=== PATIENT | female | born 1995 | race Caucasian/White ===

== ENCOUNTER 2017-06-29 09:02 | Emergency (ER) | payer BC, MEDICAID ==
--- NOTE | 2017-06-29 11:12 | UC ---
Respiratory Complaint HPI - HPI Summary HPI Summary: 22 y/o female PMHX of CP and a MOBILITY ENGINEER shunt presents to the urgent care accompany by parents c/o mild nasal congestion, dry cough and being exposed to the flu by her home health aid. Pt states she feels fine. However Mother states this morning Pt had puffy eyes and red w. mild upset stomach. Although that is common on Pt at times. The Home Health aid called on Monday saying she was Dx w / Influenza B. Mother reports Pt hasn't been sick in a long time. She has given Ibuprofen 200mg PO to alleviates symptoms. Pt doesn't get the influenza vaccines since last time she had it she had a Grand mal seizure. Parents denied fever, SOB, respiratory distress, chest pain, abdominal pain, N/V/D. Pt is UTD w / all vaccines for her age. Mother states her daughter usually gets anxious when she visit the doctor. - History of Current Complaint Chief Complaint: UCGeneralIllness Stated Complaint: COUGH Time Seen by Provider: 06/29/17 11:10 Hx Obtained From: Patient, Family/Aircraft Stress Analyst - mother ?: No Onset/Duration: Gradual Onset, Lasting Days - 3 days, Still Present, Worse Since - today Timing: Constant Severity Initially: Mild Severity Currently: Mild Pain Intensity: 0 Pain Scale Used: 0-10 Numeric Character: Cough: Nonproductive Aggravating Factors: Other - fever Alleviating Factors: OTC Meds Associated Signs And Symptoms: Positive: Fever, Chills, Nasal Congestion - Risk Factors Pulmonary Embolism Risk Factors: Negative - Allergies/Home Medications Allergies/Adverse Reactions: Allergies Allergy/AdvReac Type Severity Reaction Status Date / Time No Known Allergies Allergy Verified 06/29/17 11:00 Home Medications: Home Medications Baclofen TAB* [Lioresal TAB*] 10 mg PO QID 06/29/17 [History Confirmed 06/29/17] PMH/Surg Hx/FS Hx/Imm Hx Previously Healthy: Yes Other Neurological History: Cerebral Palsy w/ MOBILITY ENGINEER shunt - Surgical History Surgical History: Yes Surgery Procedure, Year, and Place: placement of MOBILITY ENGINEER shunt - Family History Known Family History: Positive: Hypertension - Social History Occupation: Disabled Lives: With Family Alcohol Use: None Substance Use Type: None Smoking Status (MU): Never Smoked Tobacco - Immunization History Vaccination Up to Date: Yes Review of Systems Constitutional: Fever Skin: Negative Eyes: Negative ENT: Negative, Nasal Discharge, Sinus Congestion Respiratory: Cough Cardiovascular: Negative Gastrointestinal: Negative Genitourinary: Negative Motor: Negative Neurovascular: Negative Musculoskeletal: Negative Neurological: Negative Psychological: Negative Is Patient Immunocompromised?: No All Other Systems Reviewed And Are Negative: Yes Physical Exam Triage Information Reviewed: Yes Vital Signs: Initial Vital Signs Temp 101.3 F 06/29/17 10:51 Pulse 158 06/29/17 10:51 Resp 20 06/29/17 10:51 BP 141/95 06/29/17 10:51 Pulse Ox 99 06/29/17 10:51 - Additional Comments VITAL SIGNS: Reviewed. GENERAL: Patient w/ PMHX of CP is a well developed and nourished thin female who is sitting comfortable in her wheel chair smiling and talking w/o any acute respiratory distress. HEAD AND FACE: No signs of trauma. No ecchymosis, hematomas or skull depressions. No sinus tenderness. edematous erythematous nasal mucosa with clear discharge, EYES: PERRLA, EOMI x 2, No injected conjunctiva, clear watery eyes, no nystagmus. No photophobia. EARS: Hearing grossly intact. Ear canals and tympanic membranes are within normal limits. MOUTH: Positive pharynx with mild erythema, no exudates,no palatal petechiae. no B/L tonsillar enlargement Uvula in midline. NECK: Supple, trachea is midline, Mild anterior cervical lymphadenopathy, no JVD, no carotid bruit, no c-spine tenderness, neck with full ROM. No meningeal signs, no Kernig's or brudzinskis signs. CHEST: Symmetric, no tenderness at palpation LUNGS: Clear to auscultation bilaterally. No wheezing or crackles. CVS: Regular rate and rhythm, S1 and S2 present, no murmurs or gallops appreciated. ABDOMEN: Soft, non-tender. No signs of distention. No rebound no guarding, and no masses palpated. Bowel sounds are normal. EXTREMITIES: FROM in all major joints, no edema, no cyanosis or clubbing. NEURO: Alert and oriented x 3. No acute neurological deficits. Delay Speech and follows commands. SKIN: Dry and warm UC Diagnostic Evaluation - Laboratory O2 Sat by Pulse Oximetry: 99 Respiratory Course/Dx - Course Course Of Treatment: 22 y/o female PMHX of CP and a MOBILITY ENGINEER shunt presents to the urgent care accompany by parents c/o mild nasal congestion, dry cough and being exposed to the flu by her home health aid. Pt states she feels fine. However Mother states this morning Pt had puffy eyes and red w/ mild upset stomach. Although that is common on Pt at times. The Home Health aid called on Monday saying she was Dx w/ Influenza B. Mother reports Pt hasn't been sick in a long time. She has given Ibuprofen 200mg PO to alleviates symptoms. Pt doesn't get the influenza vaccines since last time she had it she had a Grand mal seizure. Parents denied fever, SOB, respiratory distress, chest pain, abdominal pain, N/V /D. Pt is UTD w/ all vaccines for her age. Mother states her daughter usually gets anxious when she visit the doctor. Hx obtained.Pt with URI on examination, febrile and tachycardic w/o any apparent repiratory distress, O2Sat: 99%. Pt given Tylenol PO for fever and temp started to decrease 100.1F. Influenza A&B ordered: result: Influenza B positive. Symptoms discussed w/ DR Green, he recommended an EKG and a chest X-ray. EKG ordered: Sinus Tachycardia, HR:141bpm , No ST elevations or Depressions. Chest X-ray ordered: Impression: No acute cardiopulmonary disease as per radiologist. At this point all results discussed w/ parents and Pt is hemodynamically stable. Pt will be D/C home w/ close observation by parents and f/u w/ PCP in 2 days for recheck and see if Rony's symptoms are improving. Pt Rx Tamiflu and ibuprofen PO to alleviates symptoms. Parents also Advised on hand washing and wear a mask to avoid spreading, to rest , increase fluid intake, eat well . However If symptoms do not improve or worsen parents advised to go immediately to the ER for furthr management. Pt's BP is elevated today advised to decrease salt in diet, monitor BP and f/u with PCP for further management.Parents and PT understood and agreed with plan of care. Pt ;eft the clinic hemodynamically stable and smiling. - Differential Dx/Diagnosis Differential Diagnosis/HQI/PQRI: Asthma, Bronchitis, Influenza, Laryngitis, Lower Resp Infection, Sinusitis Provider Diagnoses: 1- Influenza B. 2-fever. 3-Elevated BP w/o Hx of HTN - Physician Notification/Consults Discussed Patient Care With: Vivek Green - DR Green agreed w/ Pt's plan of care. Discharge - Discharge Plan Condition: Stable Disposition: HOME Prescriptions: Ibuprofen TAB* [Motrin TAB* 600 MG] 600 mg PO Q6H PRN #20 tab PRN Reason: Fever Oseltamivir CAP* [Tamiflu CAP*] 75 mg PO BID #10 cap Patient Education Materials: Influenza (ED), Low-Sodium Diet (ED) Referrals: Jocelyne Candelario MD [Primary Care Provider] - Additional Instructions: 1- Please give Rony the full course of the antiviral to avoid resistance. Encourage hand washing and wear a mask to avoid spreading. 2-Please give her Ibuprofen PO q6-8hrs prn as instructed after meals to alleviate fever, and sore throat. Increase fluid intake, eat well, rest and avoid strenuous exercise 3-Please Close observation and if she developed SOB, respiratory distress and elevated fever despite mediations take her to the ER for futher evaluation and treatment. Otherwise f/u w/ her PCP or return to the urgent care in 2-3 days for recheck that her symptoms are improving. 4 -Her BP is elevated today. please decrease salt in diet, monitor BP and if it continues to be elevated please f/u with PCP for further management
[2017-06-29] MEDS ORDERED: Acetaminophen TAB* 325 MG PO ONE (11:31)
--- NOTE | 2017-06-29 12:43 | RAD ---
INDICATION: Productive cough, fever and tachycardia. COMPARISON: There are no prior studies available for comparison. TECHNIQUE: An AP view of the chest was obtained. FINDINGS: The heart is within normal limits in size. Mediastinal and hilar contours appear within normal limits. The lungs are underinflated and clear. No pleural effusion is seen. There is ventricular peritoneal shunt catheter which projects over the right hemithorax. IMPRESSION: NO EVIDENCE FOR ACTIVE CARDIOPULMONARY DISEASE.
[2017-06-29 13:04] VITALS: BP 148/79
== END 2017-06-29 13:07 | disposition home or self-care (01) ==
LOC: UCCORT 09:02
DX: J10.1 Influenza due to other identified influenza virus with other respiratory manifestations (principal); R50.9 Fever, unspecified; R03.0 Elevated blood-pressure reading, without diagnosis of hypertension; I48.91 Unspecified atrial fibrillation; G80.9 Cerebral palsy, unspecified
CPT/HCPCS: 71045; 87502; 93005; 99202; A9270-GY; G0463

== ENCOUNTER 2018-06-29 11:22 | Emergency (ER) | payer BC, MEDICAID ==
--- NOTE | 2018-06-29 12:25 | ED ---
Abdominal Pain/Female - HPI Summary HPI Summary: 23yr old female with the complaint of abdominal pain, fever. Onset three days ago. Progressively worse. She has a history of CP. She limited ability to communicate. She is wheel chair bound. No runny nose, cough, sob. No diarrhea. - History of Current Complaint Chief Complaint: UCAbdominalPain Stated Complaint: GALLARDO,NAUSEA,STOMACHE ACHE Time Seen by Provider: 06/29/18 12:10 Hx Last Menstrual Period: 05/31/18 Pain Intensity: 5 Allergies/Adverse Reactions: Allergies Allergy/AdvReac Type Severity Reaction Status Date / Time No Known Allergies Allergy Verified 06/29/18 11:57 Home Medications: Home Medications Oral Bcp 1 tab PO DAILY 06/29/18 [History] PMH/Surg Hx/FS Hx/Imm Hx - Surgical History Surgery Procedure, Year, and Place: placement of REVENUE INSPECTOR shunt Infectious Disease History: No Infectious Disease History: Denies: Traveled Outside the [place] in Last 30 Days - Family History Known Family History: Positive: Hypertension - Social History Lives: With Family Alcohol Use: None Substance Use Type: Reports: None Smoking Status (MU): Never Smoked Tobacco Review of Systems - ROS Summary Review of Systems Summary: ROS limited due to Cerbral Palsey. Positive: Fever, Chills Positive: Abdominal Pain All Other Systems Reviewed And Are Negative: Yes - Comments Additional Review of Systems Comments: Limited due to CP Physical Exam Triage Information Reviewed: Yes Vital Signs On Initial Exam: Initial Vitals Temp Pulse Resp Pulse Ox 100.1 F 150 26 99 06/29/18 11:54 06/29/18 11:54 06/29/18 11:54 06/29/18 11:54 Vital Signs Reviewed: Yes Appearance: Positive: Well-Appearing, No Pain Distress Skin: Positive: Warm, Skin Color Reflects Adequate Perfusion Head/Face: Positive: Normal Head/Face Inspection Eyes: Positive: EOMI Neck: Positive: Supple, Nontender Respiratory/Lung Sounds: Positive: Clear to Auscultation, Breath Sounds Present Cardiovascular: Positive: RRR. Negative: Murmur Abdomen Description: Positive: Nontender. Negative: Distended, Guarding Musculoskeletal: Positive: Strength/ROM Intact Neurological: Positive: Alert, Oriented to Person Place, Time, Other - wheelchair bound Psychiatric: Positive: Normal Diagnostics - Vital Signs Vital Signs Temp Pulse Resp Pulse Ox 06/29/18 11:54 100.1 F 150 26 99 - Laboratory Lab Statement: Any lab studies that have been ordered have been reviewed, and results considered in the medical decision making process. - EKG 06/29/18 Cardiac Rate: Tachycardia EKG Rhythm: Sinus Tachycardia ST Segment: Normal Ectopy: None Abdominal Pain Fem Course/Dx - Course Course Of Treatment: 23 yr old female with abdominal pain, fever, tachy. Transfer to ER by ambulance. Report called to Karie Lemus NP at [facility]. - Diagnoses Provider Diagnoses: Abdominal pain, Generalized abdominal pain Discharge - Sign-Out/Discharge Documenting (check all that apply): Patient Departure All imaging exams completed and their final reports reviewed: No Studies - Discharge Plan Condition: Good Disposition: TRANS HIGHER LVL OF CARE FAC Referrals: Jocelyne Candelario MD [Primary Care Provider] - - Billing Disposition and Condition Condition: GOOD Disposition: Trans Higher Lvl of Care Fac
== END 2018-06-29 12:34 | disposition short-term general hospital (02) ==
LOC: UCCORT 11:22
DX: R10.84 Generalized abdominal pain (principal); R50.9 Fever, unspecified; R51 Headache; R11.0 Nausea; G80.9 Cerebral palsy, unspecified
CPT/HCPCS: 93005; 99213; G0463